=== PATIENT | female | born 1985 | race Caucasian/White ===

== ENCOUNTER 2022-02-14 15:40 | Emergency (ER) | payer MEDICARE, MEDICAID, SELFPAY ==
--- NOTE | ~2022-02-14 | CT_ITS ---
EXAMINATION: CT SOFT TISSUE NECK WITHOUT CONTRAST Clinical information: Sore clinical information, evaluate for peritonsillar abscess TECHNIQUE: Helical imaging was performed in the axial plane with generation of coronal and sagittal reformatted images. This CT examination was performed using dose optimization techniques as appropriate, variously including the following: *Automated exposure control *Adjustment of mA and/or kV according to patient size (this includes techniques or standardized protocols for targeted exams where dose is matched to indication/reason for exam; i.e. extremities or head) *Use of iterative reconstruction technique DLP: 375 mGy-cm FINDINGS: There is submandibular and neck lymphadenopathy seen bilaterally the largest lymph node on the right measured 3.3 x 1.5 x 1.7 cm. The parotid glands are homogeneous in attenuation. The submandibular glands are normal. No contour abnormality or pathologic enhancement is seen within the oral cavity or pharyngeal mucosal space. There is bilateral prominence of palatine tonsils more prominent on the right with midline shift on the airway consistent with an appearance of tonsillitis but there is no peritonsillar abscess is seen. The right tonsil measured approximately 2.5 x 3.2 cm. The laryngeal structures are normal. The parapharyngeal fat is obliterated on the right. The carotid sheath vasculature opacify normally. No extra mucosal soft tissue mass or fluid collection is seen. No retropharyngeal fluid collection is seen. The thyroid gland is normal. The superior mediastinum is unremarkable. The lung apices are clear. The mastoid air cells and visualized portions of the paranasal sinuses are well-aerated. The temporomandibular joints are normal. No periapical disease is identified. No osseous abnormalities are seen. The imaged portions of the brain parenchyma are unremarkable. CT/CT soft tissue neck wo con IMPRESSION: Tonsillitis right more than left without peritonsillar abscess Neck and submandibular lymphadenopathy
[2022-02-14 16:16] VITALS: BP 138/95; PULSE 95; RESP 16; TEMP 36.2; O2SAT 99; BMI 24.0
[2022-02-14 19:18] VITALS: BP 109/82; PULSE 103; TEMP 37.1; O2SAT 100
--- NOTE | 2022-02-14 20:19 | ED_ITS ---
HPI - General Adult General Chief complaint: General Medical Stated complaint: throat pain ?tonsils Time Seen by Provider: 02/14/22 19:19 Source: patient Mode of arrival: ambulatory Limitations: no limitations History of Present Illness HPI narrative: 36-year-old female presents to ED for sore throat. Patient was diagnosed with strep throat 3 days ago and states still having throat pain. Patient was seen by [facility] today in the referred to the ED for possible peritonsillar abscess. Patient denies any drooling, sore throat, change in voice, chest pain, neck swelling, shortness of breath. Patient states she has been on azithromycin so 4 for the past 3 days. Related Data Previous Rx's Medication Instructions Recorded naproxen 500 mg tablet 500 mg PO BID PRN 10 Days #20 tab 02/14/22 prednisone 20 mg tablet 40 mg PO DAILY 5 Days #10 tab 02/14/22 Allergies Allergy/AdvReac Type Severity Reaction Status Date / Time Penicillins [PENICILLINS] Allergy Intermediate RASH Verified 02/14/22 16:15 vancomycin Allergy Intermediate Hives Verified 02/14/22 16:15 Latex, Natural Rubber Allergy Mild Rash Verified 02/14/22 16:15 Review of Systems Review of Systems: Sore throat Yes all other systems are reviewed and are negative PMFSH Social History Social History Advance Directives: No Advance Directives Information Provided: Yes Physical Exam ED Vital Signs: Vital Signs - 24 hr 02/14/22 16:16 02/14/22 19:18 Temperature 97.2 F 98.7 F Pulse Rate 95 103 H Respiratory Rate 16 Blood Pressure 138/95 H 109/82 Pulse Oximetry 99 100 BMI result Body Mass Index 24.0 Const General: cooperative, healthy appearing, comfortable, no acute distress, well developed, alert, awake and Physically active Orientation/consciousness: oriented to time and patient oriented x3 HENMT Head: Yes normal to inspection, Yes No palpable skull fracture present, Yes normocephalic, Yes atraumatic and No abrasion Ears: hearing grossly normal bilaterally, external ears normal, TM's normal bilaterally, TM normal on the right, TM normal on the left, EAC's normal, mastoids normal and no periauricular adenopathy Throat: Yes posterior oropharynx normal, Yes uvula midline and Yes abnormal tonsil (Right tonsil more swollen red. Negative for signs of peritonsillar abscess) Eyes General: appearance normal, both eyes and all related structures Neck Neck: Yes normal visual inspection, Yes full ROM, Yes no lymphadenopathy, Yes no meningeal signs, Yes trachea midline, Yes supple, No anterior neck swelling and No tender Chest Chest palpation & inspection: normal inspection of the chest and normal palpation of entire chest wall Resp Effort & Inspection: normal respiratory effort and able to speak in complete sentences Auscultation: clear to auscultation bilaterally Cardio Jugular venous distension: no JVD Heart sounds: S1 normal heart sound present and S2 normal heart sound present GI Inspection: Yes normal to inspection and No abdominal wall ecchymosis Palpation (GI): Soft to palpation, not firm, nontender, no guarding and not rigid General: No CVA tenderness and Yes no CVA tenderness Back/Spine/Pelvis Back: no CVA tenderness, No CVA tenderness and No back tenderness Skin General skin exam: no rashes or lesions noted and elasticity normal Neuro General: oriented to time, patient oriented x3, gait normal, no meningeal signs and CN's II-XI intact bilaterally Cranial nerves: Yes CN's II-XII intact bilaterally Extrem General: Yes normal to inspection and Yes full ROM Psych Appearance: grossly normal, well kempt and not disheveled Course Course Course Narrative: Very unlikely peritonsillar abscess. Patient is sent for CT scan of neck. Due to IV contrast shorter Genie be dry CT scan Reevaluation(s) Reevaluation #1: Soft tissue neck CT scan negative for parents until abscess or signs of retropharyngeal abscess. Patient informed to continue taking system I sent will be discharged with prednisone Medical Decision Making [facility] Narrative Medical decision making narrative: Tonsillitis Discharge Plan Discharge Clinical Impression: Acute tonsillitis Patient Disposition: Home, Self-Care Instructions: Tonsillitis (ED) Additional Instructions: Continue taking azithromycin. He will be discharged with steroids. Return to the ED change in voice, drooling, shortness of breath, neck swelling, chest pain, inability to tolerate solid food/liquid, or any other concerning symptoms. Please follow-up with primary care provider Prescriptions: New prednisone 20 mg tablet 40 mg PO DAILY 5 Days Qty: 10 0RF naproxen 500 mg tablet 500 mg PO BID PRN (Reason: pain) 10 Days Qty: 20 0RF Stand Alone Forms: Work/School Release Interventions: ED Discharge Assessment Last Done: 02/14/22 21:00 Discharge Date/Time: 02/14/22 21:02 Print Language: Mohawk
== END 2022-02-14 21:02 | disposition home or self-care (01) ==
PROVIDERS: Emergency Provider Emergency Medicine; PCP Family Medicine
DX: J03.90 Acute tonsillitis, unspecified (principal); R07.0 Pain in throat
CPT/HCPCS: 70490; 99282; 99284